=== PATIENT | male | born 1965 | race Caucasian/White ===

== ENCOUNTER 2018-01-26 16:54 | Emergency (ER) | payer SELFPAY ==
[~2018-01-26] VITALS: Ht 175.3 cm; Wt 88.2 kg
[~2018-01-26 16:54] MED LIST: CLIN150 PO; SULF1TAB47 PO; TOBRA.3%O LEFT EYE; TYLE3 PO; Z.0.NO CURRENT MEDS
[2018-01-26 16:56] VITALS: BP 153/90; PULSE 77; RESP 16; TEMP 98.3; O2SAT 99
[2018-01-26] MEDS ORDERED: CEPH-460 PO (17:28)
[2018-01-26] MEDS ORDERED: MUPI2%T TOPICAL (17:28)
[2018-01-26] MEDS ORDERED: NYST1OIN TOPICAL (17:28)
--- NOTE | 2018-01-26 17:32 | PD ---
HPI Chief Complaint: Skin Problem Time Seen by Provider: 17:15 Travel History International Travel<30 days: No Contact w/Intl Traveler<30days: No Traveled to known affect area: No History of Present Illness HPI 52-year-old male presents to emergency department for evaluation of bilateral hand swelling, cracking, scaling that has been present for 1 week. Says that the right index and middle finger started cracking approximately 1 week ago and the hands have been waxing and waning in terms of swelling for the last week. Says that the hands feel as if they are aching but denies any pain. Denies numbness or tingling. Denies fevers or chills. He has no history of this previously. 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 Says he did try some other cream that seemed to have smooth out his skin however, this seems to have increased scaling on his skin. Says that he has not followed up or seen a beater out leveling machine. Denies chronic medical issues medication use. PFSH Past Medical History Medical History: Denies Significant Hx Diminished Hearing: No Immunizations Current: Yes Tetanus Vaccination: > 5 Years Influenza Vaccination: No Past Surgical History Surgical History: No Previous Surgery Social History Alcohol Use: Yes (OCCASIONAL -BEER) Tobacco Use: Yes (1/2 PPD ) Substance Use: No Allergies-Medications (Allergen,Severity, Reaction): Coded Allergies: No Known Allergies (Unverified Adverse Reaction, Unknown, 01/26/18) Reported Meds & Prescriptions Reported Meds & Active Scripts Active Bactroban Topical (Mupirocin) 22 Gm Cream 1 Applic TOPICAL BID 5 Days Nystatin-Triamcinolone 100,000-0.1 Unit/Gm Oint 1 Applic TOPICAL Q12HR 5 Days Keflex (Cephalexin) 500 Mg Capsule 500 Mg PO Q8H 7 Days Review of Systems Except as stated in HPI: all other systems reviewed are Neg Physical Exam Narrative GENERAL: Well-nourished, well-developed patient, in NAD SKIN: Focused skin assessment warm/dry. No rashes or lesions. HEAD: Normocephalic. Atraumatic. EYES: No scleral icterus. No injection or drainage. THROAT: No pharyngeal injection, exudates, or tonsillar hypertrophy. Airway is patent. NECK: Supple, trachea midline. No JVD or lymphadenopathy. No meningismus. CARDIOVASCULAR: Regular rate and rhythm without murmurs, gallops, or rubs. RESPIRATORY: Breath sounds equal bilaterally. No accessory muscle use. No wheezes, rales, or rhonchi MUSCULOSKELETAL: No cyanosis, or edema. Bilateral hands-edema with erythema R>L, cracking of flexural areas of the fingers with honey crusting, small satellite appearing lesions extending onto the wrists. No lymph angiopathic spread spread BACK: Nontender without obvious deformity. No CVA tenderness. Data Data Last Documented VS Vital Signs Date Time Temp Pulse Resp B/P (MAP) Pulse Ox O2 Delivery O2 Flow Rate FiO2 01/26/18 16:56 98.3 77 16 153/90 (111) 99 Orders Orders Ed Discharge Order (01/26/18 17:32) [facility] Medical Decision Making Medical Screen Exam Complete: Yes Emergency Medical Condition: Yes Differential Diagnosis Cellulitis, erysipelas, atopic dermatitis, contact dermatitis Narrative Course 52-year-old male presents to emergency department for evaluation of bilateral hand swelling, cracking, scaling that has been present for 1 week. Says that the right index and middle finger started cracking approximately 1 week ago and the hands have been waxing and waning in terms of swelling for the last week. Says that the hands feel as if they are aching but denies any pain. Denies numbness or tingling. Denies fevers or chills. He has no history of this previously. 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 Says he did try some other cream that seemed to have smooth out his skin however, this seems to have increased scaling on his skin. Says that he has not followed up or seen a beater out leveling machine. Denies chronic medical issues medication use. Vital signs are stable. Physical exam findings consistent with cellulitis of bilateral hands, right more than left. Diffuse scaling and cracking of the fingers with honey crusting. No lymphangiopathic spread. It appears that he may have some satellite lesions indicating a possible yeast infection as well. I given instruction regarding the medications he is given today which include Bactroban, nystatin triamcinolone ointment, and Keflex. I highly recommend that he follow-up with dermatology. Recommend changing gloves his latex and Nitrile gloves me be contributing to his symptoms. He states understanding, will comply. Diagnosis Primary Impression: Atopic dermatitis Qualified Codes: L20.9 - Atopic dermatitis, unspecified Additional Impressions: Cellulitis Qualified Codes: L03.119 - Cellulitis of unspecified part of limb Impetigo Referrals: [facility] Supervisor Liquefaction Primary Care Physician Additional Instructions: Start the oral antibiotics immediately. Use the bactroban twice daily especially for the crack in the hands. Use the triamcinolone ointment at night. Consider follow up with a beater out leveling machine. Follow up with your primary care physician within 2-3 days. Consider changing glove type, as discussed today. Scripts Mupirocin Topical (Bactroban Topical) 22 Gm Cream 1 APPLIC TOPICAL BID for Mgmt Bacterial Infection for 5 Days, #1 TUBE 0 Refills Prov: Jeni Brady DO 01/26/18 Nystatin-Triamcinolone (Nystatin-Triamcinolone) 100,000-0.1 Unit/Gm Oint 1 APPLIC TOPICAL Q12HR for Infection for 5 Days, #30 GM 0 Refills Prov: Jeni Brady DO 01/26/18 Cephalexin (Keflex) 500 Mg Capsule 500 MG PO Q8H for Infection for 7 Days, #21 CAP 0 Refills Prov: Jeni Brady DO 01/26/18 Disposition: 01 DISCHARGE HOME Condition: Stable Arleen Cartagena January 26, 2018 17:32
== END 2018-01-26 17:45 | disposition home or self-care (01) ==
LOC: PHEFT 16:54
DX: L20.9 Atopic dermatitis, unspecified (principal); L03.114 Cellulitis of left upper limb; L03.113 Cellulitis of right upper limb; L01.00 Impetigo, unspecified; F17.210 Nicotine dependence, cigarettes, uncomplicated
CPT/HCPCS: 99283